=== PATIENT | male | born 1985 | race Caucasian/White ===

== ENCOUNTER 2020-11-26 21:38 | Emergency (ER) | payer MEDICAID ==
[~2020-11-26] VITALS: Ht 162.6 cm; Wt 65.8 kg
[2020-11-26 22:03] VITALS: BP_SYST 112
--- NOTE | 2020-11-26 22:29 | NUR ---
Patient to ER bed 05 to gown for evaluation. Side rails up.
--- NOTE | 2020-11-26 22:30 | NUR ---
DR. ANDERSON AT BEDSIDE FOR EVALUATION.
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
--- NOTE | 2020-11-26 22:40 | NUR ---
DR. ANDERSON AT BEDSIDE GIVING UPDATE.
[2020-11-26] MEDS ORDERED: IBUP-1969 PO ×2 (22:58→23:28)
[2020-11-26] MEDS ORDERED: HYDR-3917 PO ×2 (22:58→23:28)
[2020-11-26] MEDS ORDERED: IBUPROFEN 600 MG TABLET PO ONE (23:00)
--- NOTE | 2020-11-26 23:18 | NUR ---
MEDICATION ADMINISTERED. EDUCATION GIVEN. PT TOLERATED WELL.
[2020-11-26 23:31] VITALS: BP_SYST 112
--- NOTE | 2020-11-26 23:31 | NUR ---
Patient given written and verbal discharge instructions and verbalizes understanding. DR. JUSTIN THURSTON MD discussed with patient the results and treatment provided. Patient in stable condition. ID arm band removed. Rx of NORCO, MOTRIN given. Patient educated on pain management and to follow up with PMD. Pain Scale 0/10. Opportunity for questions provided and answered. Medication side effect fact sheet provided.
== END 2020-11-26 23:31 | disposition home or self-care (01) ==
LOC: SED 21:38
DX: S22.32XA Fracture of one rib, left side, initial encounter for closed fracture (principal); Z79.899 Other long term (current) drug therapy; W51.XXXA Accidental striking against or bumped into by another person, initial encounter; Y93.89 Activity, other specified; Y92.89 Other specified places as the place of occurrence of the external cause; Y99.8 Other external cause status
CPT/HCPCS: 71045; 99283

== ENCOUNTER 2022-04-05 20:19 | Emergency (ER) | payer MEDICAID ==
[~2022-04-05] VITALS: Ht 165.1 cm; Wt 68.0 kg
[~2022-04-05 20:19] MED LIST: HYDR-3917 PO; IBUP-1969 PO
[2022-04-05 20:29] VITALS: BP_SYST 107
[2022-04-05] MEDS ORDERED: ALPR0.5T PO (20:36)
[2022-04-05 21:39] VITALS: BP_SYST 107
== END 2022-04-05 21:39 | disposition home or self-care (01) ==
LOC: SED 20:19
DX: F41.9 Anxiety disorder, unspecified (principal); Z79.899 Other long term (current) drug therapy
CPT/HCPCS: 71045; 93005; 99283; 99284